=== PATIENT | male | born 1960 | race Caucasian/White ===

== ENCOUNTER 2024-03-24 15:37 | Emergency (ER) | payer BC, SELFPAY ==
--- NOTE | ~2024-03-24 | XR_ITS ---
EXAMINATION: XR finger 3rd RT min 2V DATE: 03/24/2024 16:02 INDICATION: Laceration of right hand third digit. TECHNIQUE: 3 views of right hand third digit were obtained. COMPARISON: None. FINDINGS: There is amputation of the tuft of third distal phalanx with small fracture fragments in th e soft tissues. 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 IMPRESSION: 1. Amputation of tuft of third distal phalanx with open comminuted fracture. Reviewed, dictated and finalized at location A.
--- NOTE | 2024-03-24 15:57 | ED.WOUNDLAC ---
HPI - Wound/Laceration General Chief Complaint: Wound/Laceration Stated Complaint: FINGERTIP AMPUTATION Time Seen by Provider: 03/24/24 15:38 Source: patient Mode of arrival: ambulatory Limitations: no limitations History of Present Illness HPI narrative: Patient presents with amputation at the tip of the right middle finger while try to manage a tailgate. He denies other injuries. Patient brought the tip of the finger in a bowl of ice. Patient is up-to-date for tetanus shot Related Data Home Medications Medication Instructions Recorded Confirmed diazepam 10 mg tablet 10 mg BID PRN Anxiety 03/24/24 03/24/24 losartan 100 1 tablet DAILY 03/24/24 03/24/24 mg-hydrochlorothiazide 25 mg tablet metformin 500 mg tablet 500 mg BID 03/24/24 03/24/24 Allergies Allergy/AdvReac Type Severity Reaction Status Date / Time lisinopril Allergy Intermediate cough Verified 03/24/24 15:42 Review of Systems Review of Systems: All systems reviewed & are unremarkable except as noted in HPI and below PMFSH Social History Social History Smoking status: Never smoker Exam Narrative: GENERAL APPEARANCE: WELL-DEVELOPED, WELL-NOURISHED SKIN: NORMAL COLOR HEAD: NORMOCEPHALIC, NONTRAUMATIC NECK: SUPPLE, NONTENDER CHEST AND RESPIRATORY: AIRWAY PATENT, NO RESPIRATORY DISTRESS, NO ACCESSORY MUSCLE USE HEART: REGULAR RATE/RHYTHM ABDOMEN: SOFT, NONTENDER, NO ORGANOMEGALY, QUIET BOWEL SOUNDS VASCULAR: NORMAL PERIPHERAL PULSES, NORMAL CAPILLARY REFILL. MUSCULOSKELETAL: AMPUTATED TIP OF THE RIGHT MIDDLE FINGER NEUROLOGIC: ALERT AND ORIENTED ?3, SPECIAL POLICE OFFICER IS NORMAL TESTED, NO GROSS MOTOR DEFICIT Course Consultations Consultation #1: DR GOLDSMITH, HAND SURGEON AT [facility] IN [facility] Date: 03/24/24 Time: 16:44 Vital Signs Vital signs: Vital Signs Temperature 36.2 C L 03/24/24 16:46 Pulse Rate 82 03/24/24 16:46 Respiratory Rate 18 03/24/24 16:46 Blood Pressure 162/118 H 03/24/24 16:46 Pulse Oximetry 96 03/24/24 16:46 Oxygen Delivery Room Air 03/24/24 16:46 Temperature 36.2 C L 03/24/24 16:46 Pulse Rate 82 03/24/24 16:46 Respiratory Rate 18 03/24/24 16:46 Blood Pressure 162/118 H 03/24/24 16:46 Pulse Oximetry 96 03/24/24 16:46 Oxygen Delivery Room Air 03/24/24 16:46 MDM - Wound/Laceration MDM Narrative Medical decision making narrative: PATIENT CAME TO THE ED WITH TRAUMATIC AMPUTATION OF THE TIP OF THE RIGHT MIDDLE FINGER, DENIES OTHER INJURIES, X-RAY SHOWED OPEN FRACTURE, TUFT INJURY, PATIENT DECLINED TO GO TO [facility] BY AMBULANCE AND WOULD LIKE TO GO BY PRIVATE CAR, PATIENT RECEIVED KEFLEX 1 G IM PRIOR TO LEAVING Imaging Data Radiologist's impression: Impressions Finger X-Ray 03/24/24 16:03 IMPRESSION: 1. Amputation of tuft of third distal phalanx with open comminuted fracture. Critical Care Time Critical Care Time Critical Care Time: No Discharge Plan Discharge Clinical Impression: Open wound of finger of right hand Patient Disposition: Acute Care Hospital Condition: Stable Additional Instructions: TRANSFERRED TO [facility]/TRAUMA TO MANAGE BY A HAND SURGEON Prescriptions: No Action metformin 500 mg tablet 500 mg BID losartan-hydrochlorothiazide 100-25 mg tablet 1 tablet DAILY diazepam 10 mg tablet 10 mg BID PRN (Reason: Anxiety) Follow-up/Referrals: UNKNOWN,DOCTOR [Non-Staff] -
[2024-03-24 16:46] VITALS: BP 162/118; PULSE 82; RESP 18; TEMP 36.2; O2SAT 96
--- NOTE | 2024-03-24 16:50 | PC.NURSE ---
Pt accepted to [facility] ER, gave report to JESSIKA Becerra. Pt wishes to go by private vehicle. ERP aware and will change orders to IM medications.
--- NOTE | 2024-03-24 17:08 | PC.NURSE ---
RADIOLOGY HAS PUSHED FILMS TO [facility]
[2024-03-24] MEDS: HYDROmorphone HCL INJ (*CRX) 2 MG/ML VIAL 0.5 MG IV PUSH (17:28)
[2024-03-24] MEDS: ceFAZolin SODIUM 1 GM VIAL IM (17:31)
--- NOTE | 2024-03-24 17:40 | PC.NURSE ---
Pt medicated per ERP and is ready for transfer. Pt will transfer via private auto. Pt instructed to remain NPO and go straight to [place]. [place]'s aware that Pt is on his way.
== END 2024-03-24 17:45 | disposition short-term general hospital (02) ==
PROVIDERS: Emergency Provider Emergency Medicine; PCP Nurse Practitioner
DX: S68.122A Partial traumatic metacarpophalangeal amputation of right middle finger, initial encounter (principal); Z79.899 Other long term (current) drug therapy; Z79.84 Long term (current) use of oral hypoglycemic drugs; X58.XXXA Exposure to other specified factors, initial encounter
CPT/HCPCS: 73140; 96372; 96374; 99284; J0690; J1170